=== PATIENT | female | born 1990 | race African-American/Black ===

== ENCOUNTER 2017-05-11 10:04 | Emergency (ER) | payer BC ==
[~2017-05-11] VITALS: Ht 167.6 cm; Wt 112.5 kg
[~2017-05-11 10:04] MED LIST: ALBUTEROL INH; BENTYL 20 MG TA20 M1 PO; DIFLUCAN150 MG PO; EXPECTA PRENAT1 EACH PO; IBUPROFEN 800800 M1 PO; MACROBID 100 M100 M1 PO; NEXPLANON68 MG SQ; NORCO 5-325 TA1 EACH PO; PRECOSE 50 MG50 M1 PO; PREDNISONE 20 M20 M1 PO; PREDNISONE50 MG PO; PROBIOTIC1 EAC1 PO; PROTONIX 20 MG20 M1 PO; PROVENTIL HFA6.7 G1 INH; REGLAN 10 MG TA10 M1 PO; VENTOLIN HFA 1818 GM; VENTOLIN HFA INH8 GM IH; ZPAK PO
[2017-05-11 10:24] LABS: URINE BILIRUBIN 1+ (Negative); URINE BLOOD NEGATIVE (Negative); URINE CLARITY SL CLOUDY; URINE COLOR YELLOW; URINE GLUCOSE-RANDOM* NEGATIVE (Negative); URINE KETONES NEGATIVE (Negative); URINE PROTEIN (DIPSTICK) 1+ (Negative); URINE SPECIFIC GRAVITY >= 1.030 (1.005-1.035)
[2017-05-11 10:25] LABS: ICTOTEST (BILI CONFIRMATORY) Negative (Negative); URINE LEUKOCYTES-REFLEX 1+ (Negative); URINE NITRITE-REFLEX POSITIVE (Negative)
[2017-05-11 10:27] LABS: SQUAMOUS >10 Many /LPF (0-3)
[2017-05-11 10:28] LABS: AMORPHOUS URATES Many /LPF (None Seen); CASTS None Seen /LPF (None Seen); URINE RBC 0-2 Rare /HPF (0-2); URINE WBC-REFLEX 6-15 Few /HPF (0-5)
[2017-05-11] MEDS ORDERED: MACROBID 100 M100 M1 PO (11:36)
[2017-05-11 11:44] VITALS: BP 117/68
== END 2017-05-11 11:45 | disposition home or self-care (01) ==
LOC: ER 10:04
PROVIDERS: Physician Assistant
DX: N39.0 Urinary tract infection, site not specified (principal); N89.8 Other specified noninflammatory disorders of vagina; J45.909 Unspecified asthma, uncomplicated

== ENCOUNTER 2018-05-29 18:57 | Emergency (ER) | payer BC ==
[~2018-05-29] VITALS: Ht 167.6 cm; Wt 104.3 kg
[2018-05-29] MEDS ORDERED: SUDOGEST30 MG PO (20:23)
[2018-05-29] MEDS ORDERED: FLONASE 0.05%50 MCG NASAL (20:23)
[2018-05-29 20:51] VITALS: BP 146/77
== END 2018-05-29 21:00 | disposition home or self-care (01) ==
LOC: ER 18:57
DX: J34.89 Other specified disorders of nose and nasal sinuses (principal); K13.79 Other lesions of oral mucosa; J45.909 Unspecified asthma, uncomplicated

== ENCOUNTER 2018-11-14 19:04 | Emergency (ER) | payer BC ==
[~2018-11-14] VITALS: Ht 165.1 cm; Wt 104.3 kg
[~2018-11-14 19:04] MED LIST changes: +FLONASE 0.05%50 MCG NASAL; +SUDOGEST30 MG PO
[2018-11-14 19:05] VITALS: BP 126/82
[2018-11-14] MEDS ORDERED: ERYTHROMYCIN E3.5 G3 OPHTHALMIC (19:42)
== END 2018-11-14 20:06 | disposition home or self-care (01) ==
LOC: ER 19:04
DX: H00.12 Chalazion right lower eyelid (principal); J45.909 Unspecified asthma, uncomplicated

== ENCOUNTER 2018-11-25 02:23 | Emergency (ER) | payer BC ==
[~2018-11-25] VITALS: Ht 165.1 cm; Wt 99.8 kg
[~2018-11-25 02:23] MED LIST changes: +ERYTHROMYCIN E3.5 G3 OPHTHALMIC
[2018-11-25 03:49] LABS: CALCIUM 8.8 mg/dL (8.5-10.1); HEMATOCRIT 37.6 % (37.0-47.0); HEMOGLOBIN 12.3 gm/dL (12.0-15.0); MCHC 32.8 g/dL (28.0-37.0); MCV 85.4 fL (80.0-100.0); POTASSIUM 3.7 mmol/L (3.5-5.1); RBC 4.4 mil/uL (4.20-5.00); RDW 13.2 % (10.5-14.5); WBC 6.4 thou/uL (4.0-11.0)
[2018-11-25] MEDS ORDERED: CLEOCIN HCL150 MG PO (05:24)
[2018-11-25 05:48] VITALS: BP 117/64
== END 2018-11-25 05:49 | disposition home or self-care (01) ==
LOC: ER 02:23
PROVIDERS: Emergency Medicine
DX: L03.213 Periorbital cellulitis (principal); J45.909 Unspecified asthma, uncomplicated

== ENCOUNTER 2021-01-31 18:06 | Emergency (ER) | payer BC ==
[~2021-01-31] VITALS: Ht 165.1 cm; Wt 90.7 kg
[2021-01-31 18:06] VITALS: BP 127/106
[~2021-01-31 18:06] MED LIST changes: +CLEOCIN HCL150 MG PO
[2021-01-31] MEDS ORDERED: AUGMENTIN 875-1 EACH PO (19:16)
== END 2021-01-31 20:17 | disposition home or self-care (01) ==
LOC: ER 18:06
DX: S90.852A Superficial foreign body, left foot, initial encounter (principal); J45.909 Unspecified asthma, uncomplicated; Z98.890 Other specified postprocedural states; Z79.899 Other long term (current) drug therapy; W22.8XXA Striking against or struck by other objects, initial encounter; Y93.89 Activity, other specified; Y92.89 Other specified places as the place of occurrence of the external cause; Y99.8 Other external cause status